=== PATIENT | male | born 1970 | race Caucasian/White ===

== ENCOUNTER 2024-01-23 11:07 | Emergency (ER) | payer MEDICAID ==
[~2024-01-23] VITALS: Ht 193 cm; Wt 114.3 kg
[2024-01-23 11:14] VITALS: BP_SYST 145; PULSE 104; RESP 18; TEMP 98.3; O2SAT 98
[2024-01-23 11:40] LABS: BASOPHILS # (AUTO) 0.1 K/uL (0.0-0.2); BASOPHILS % (AUTO) 1.3 % (0.0-2.0); EOSINOPHILS # (AUTO) 0.8 K/uL (0.0-0.4); EOSINOPHILS % (AUTO) 9.2 % (0.0-4.0); HEMATOCRIT 47.1 % (36-54); HEMOGLOBIN 15.9 g/dL (14.0-18.0); MEAN CORPUSCULAR HEMOGLOBIN 29 pg (27-31); MEAN CORPUSCULAR HGB CONC 34 % (32-36); MEAN CORPUSCULAR VOLUME 86 fL (79.0-98.0); MONOCYTES # (AUTO) 0.9 K/uL (0.0-1.0); MONOCYTES % (AUTO) 10.4 % (1.7-9.3); NEUTROPHILS # (AUTO) 5.1 K/uL (1.8-7.7); NEUTROPHILS % (AUTO) 57.1 % (40.0-70.0); PLATELET COUNT (AUTO) 193 K/uL (130-430); RED BLOOD CELL COUNT(AUTO) 5.47 MIL/uL (4.2-6.2); RED CELL DISTRIBUTION WIDTH 13.6 % (9.0-15.0); WHITE BLOOD COUNT (AUTO) 8.9 K/uL (4.8-10.8)
[2024-01-23 12:13] LABS: CALCIUM 8.7 mg/dL (8.4-11.0); CREATININE 0.83 mg/dL (0.55-1.30); POTASSIUM 3.9 mmol/L (3.5-5.1)
[2024-01-23] MEDS ORDERED: IBUP-1971 PO (12:31)
[2024-01-23] MEDS ORDERED: IBUP-1969 PO (12:31)
[2024-01-23] MEDS ORDERED: HYDR-3927 PO (12:31)
[2024-01-23 12:51] VITALS: BP_SYST 139; PULSE 98; RESP 18; TEMP 98.3; O2SAT 98
== END 2024-01-23 12:56 | disposition home or self-care (01) ==
LOC: SED 11:07
DX: G57.92 Unspecified mononeuropathy of left lower limb (principal); E11.9 Type 2 diabetes mellitus without complications; I10 Essential (primary) hypertension
CPT/HCPCS: 36415; 73590; 80048; 85025; 93971; 99284